=== PATIENT | male | born 1985 | race Caucasian/White ===

== ENCOUNTER 2016-07-09 02:17 | Emergency (ER) | payer OTHER ==
[~2016-07-09] VITALS: Ht 182.9 cm; Wt 102.1 kg
[2016-07-09 02:20] VITALS: BP 134/60
== END 2016-07-09 03:16 | disposition home or self-care (01) ==
LOC: EME 02:17
DX: T16.2XXA Foreign body in left ear, initial encounter (principal)
CPT/HCPCS: 99281; 99283